=== PATIENT | female | born 1950 | race Caucasian/White ===

== ENCOUNTER 2022-03-28 06:24 | Day surgery (SDC) | payer MEDICARE, SELFPAY ==
[2022-03-22 14:18] VITALS: BMI 26.4
--- NOTE | 2022-03-23 09:01 | MHC.SHP ---
Pre-Procedural Eval Section A Date of Service: 03/23/22 The patient is an INPATIENT: No Changes since office visit: No Cold of Flu in the past 2 weeks, No New Medical Problems, No Changes in Medication and No Patient answered all questions The History & Physical has been completed within 30 days and I have reviewed it.: Yes Section B Chief Complaint: Age-related nuclear cataract, right eye Allergies: Allergies Allergy/AdvReac Type Severity Reaction Status Date / Time adhesive tape Allergy Unknown Verified 03/22/22 14:18 lactose Allergy Unknown Verified 03/22/22 14:18 sertraline Allergy Diarrhea Verified 03/22/22 14:18 [id number] Reductase Allergy Headache, Verified 03/22/22 14:18 Inhibitor Myalgia fluoxetine AdvReac Depression Verified 03/22/22 14:18 Plan Diagnosis/Plan: Unchanged I have reviewed the history and physical and performed a pertinent physical examination on my patient. No changes have occurred unless specified. Time Spent With Patient Time: Total time managing care of this patient today ____ minutes.
[2022-03-28 06:25] VITALS: BP 145/103; PULSE 93; RESP 18; TEMP 36.1; O2SAT 95
[2022-03-28] MEDS: Lactated Ringers 500 ML 20 ML IVCONT (06:40)
[2022-03-28] MEDS: Tetracaine HCl/PF 0.5% Oph Sol 4 ML DROPS 1 DROP EYE-RIGHT (06:42)
[2022-03-28] MEDS: Tropicamide 1 % Ophth Sol 3 ML BTL 1 DROP EYE-RIGHT ×3 (06:42→06:45)
[2022-03-28] MEDS: Ketorolac Tromethamine 0.5% Op 5 ML DROPS 1 DROP EYE-RIGHT ×3 (06:42→06:45)
[2022-03-28] MEDS: Cyclopentolate 1 % Ophth Sol 2 ML DRPBTL 1 DROP EYE-RIGHT ×3 (06:42→06:44)
[2022-03-28] MEDS: Phenylephrine HCL 2.5% Oph SoL 2 ML BOTTLE 1 DROP EYE-RIGHT ×3 (06:43→06:44)
--- NOTE | 2022-03-28 07:26 | HO.ANESPROP2 ---
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 Pulmonary nodules Smoker Tubular adenoma of colon Family History Family history of problems with anesthesia: No Surgical History Surgical History History of appendectomy History of arthroscopy of right knee History of lumpectomy of left breast History of removal of ovarian cyst Hx of colonoscopy History of Problems with Anesthesia: No Social History Social History Are you a primary plant health care technician to a significant other at home: No Do you presently have visiting nurse or other home services: No Patient Tobacco Use Status: Current everyday Tobacco user Tobacco use type: Cigarette Cigarettes Per Day: 8 Years Smoked: 50 Smoked in Last 30 Days: Yes Patient Interested in Nicotine Replacement: No Patient Given Instructions on How to Stop Smoking: No Second Hand Smoke Exposure: No Use of substances other than those prescribed or required for medical reasons: No Have you been hit, kicked, punched, or otherwise hurt by someone within the past year? If so, by whom?: No Are you DNR?: No Advance Directives: No Advance Directives Information Provided: Yes Advance Directives on File: No Recently lost weight without trying: No Eating poorly because of decreased appetite: No Nutrition Risks: No Nutritional Risk Patient : No : No Poor oral hygiene: No (Full Dentures) Meds Allergies Allergy/AdvReac Type Severity Reaction Status Date / Time adhesive tape Allergy Unknown Verified 03/22/22 14:18 lactose Allergy Unknown Verified 03/22/22 14:18 sertraline Allergy Diarrhea Verified 03/22/22 14:18 [id number] Reductase Allergy Headache, Verified 03/22/22 14:18 Inhibitor Myalgia fluoxetine AdvReac Depression Verified 03/22/22 14:18 Active Medications: Current Medications Moxifloxacin HCl (Moxifloxacin Hcl 0.5 % Oph Domi 3 Ml Drpbtl) 1 drop EYE-RIGHT POSTOP ONE Stop: 03/28/22 06:01 Phenylephrine HCl (Phenylephrine Hcl 2.5% Oph Domi 2 Ml Bottle) 1 drop EYE-RIGHT Q5M NIMCO Stop: 03/28/22 06:11 Last Admin: 03/28/22 06:44 Dose: 1 1000units Povidone Iodine (Povidone Iodine 5 % Ophth Soln 30 Ml Bottle) 1 appl EYE-RIGHT PREOP PRN PRN Reason: Pre-Op Surgical Implant Prophy Tetracaine HCl (Tetracaine Hcl/Pf 0.5% Oph Domi 4 Ml Drops) 1 drop EYE-RIGHT PREOP ONE Stop: 03/28/22 06:01 Last Admin: 03/28/22 06:42 Dose: 1 drop Triamcinolone Acetonide (Triamcinolone Acetonide 40 Mg/Ml Vial) 40 mg IM POSTOP ONE Stop: 03/28/22 06:01 Tropicamide (Tropicamide 1 % Ophth Domi 3 Ml Btl) 1 drop EYE-RIGHT Q5M NIMCO Stop: 03/28/22 06:11 Last Admin: 03/28/22 06:45 Dose: 1 drop Home Medications Medication Instructions Recorded Confirmed Last Taken Type anastrozole 1 mg tablet 1 tab PO DAILY 03/16/22 03/16/22 Unknown History apixaban 5 mg tablet (Eliquis) 1 tab PO BID 03/16/22 03/16/22 03/27/22 History buspirone 5 mg tablet 1 tab PO BID 03/16/22 03/16/22 03/28/22 History ezetimibe 10 mg tablet 1 tab PO DAILY 03/16/22 03/16/22 Unknown History fenofibrate nanocrystallized 48 mg 1 tab PO DAILY 03/16/22 03/16/22 Unknown History tablet fexofenadine 180 mg tablet 180 mg PO DAILY 03/16/22 03/16/22 Unknown History lorazepam 0.5 mg tablet 1 tab PO TID 03/16/22 03/16/22 03/28/22 History metoprolol succinate 100 mg 1 tab PO DAILY 03/16/22 03/16/22 03/28/22 History tablet,extended release 24 hr venlafaxine 37.5 mg 1 cap PO DAILY 03/16/22 03/16/22 Unknown History capsule,extended release 24 hr Exam Exam Date and Time: March 28, 2022725 Height,Weight and Vital Signs: Height 5 ft 9 in Weight 81.2 kg Last Vital Signs Temp 97 F 03/28/22 06:25 Pulse 93 03/28/22 06:25 Resp 18 03/28/22 06:25 BP 145/103 H 03/28/22 06:25 Pulse Ox 95 03/28/22 06:25 O2 Del Method 03/28/22 06:25 Airway Mallampati Class: II TM Dist: >3cm Neck ROM: Full Denture: Upper and Lower Heart: Irregularly irregular Lungs: CTAB. Diminished Assessment and Plan Assessment Anesthesia Assessment: Anesthesia Plan Discussed and Chart Reviewed Final Anesthetic Review Family History of Problems with Anesthesia: No History of Problems with Anesthesia: No NPO: Yes ASA Class: III Final Preanesthetic Review: No Changes in Pt Med Stat, Meds/Allgs Chart Reviewed, Consent Obtained/Reviewed and Anes Risks/Benef Reviewed Patient Risk: Intermediate Procedure Risk: Low Assessment/Block/Sedation in SS: Assess/Block/Sedation-SS Anesthetic Plan Anesthetic Plan: MAC: Disposition: Standard PACU
--- NOTE | 2022-03-28 07:46 | PC.NURSE ---
verbalized understanding of d/c
--- NOTE | 2022-03-28 08:14 | HO.PNOPHT ---
Ophthalmology Procedure Procedure Date of Service: 03/28/22 Ophthalmology Viscoelastic: Healsyed Godinezt Dual Pack Pro Ophthalmology Lenses: TECNIS [id number] (22.5) Procedure Notes: PREOPERATIVE DIAGNOSIS: Decreased visual acuity right eye secondary to cataract POSTOPERATIVE DIAGNOSIS: Same PROCEDURE: Right cataract extraction with intraocular lens insertion SURGEON: Sylvester Yo M.D. ANESTHESIA: Topical/MAC ESTIMATED BLOOD LOSS: None COMPLICATIONS: None After obtaining informed consent, the patient was brought to the operating room suite and placed in the supine position. After adequate sedation per anesthesia, topical drops of Tetracaine were given to the right eye. The eye was then prepped and draped in the usual sterile fashion. The operating room microscope was then positioned over the operative eye and a lid speculum placed. A paracentesis was created. Viscoelastic was then instilled into the anterior chamber. A three plane incision was then created temporally, utilizing a 2.85 mm keratome. Capsulotomy forceps were then utilized to create a circular tear capsulotomy. Hydrodissection and hydrodelineation were carried out until adequate mobilization of the nucleus occurred. Phacoemulsification was then utilized to remove the dense central nucleus followed by removal of the cortical material utilizing the automated aspiration irrigation unit. Viscoelastic was instilled into the posterior capsular bag followed by placement of a posterior chamber intraocular lens without difficulty. The residual Viscoelastic was then removed utilizing the automated IA machine. The wound was checked and found to be watertight. The patient tolerated the procedure well and the lid speculum was removed. Intracameral injection of Vigamox 0.1 mL followed by a subtenon injection of Kenalog-40 0.2 mL were administered. The patient will be seen in the a.m.
[2022-03-28 08:37] VITALS: BP 146/91; PULSE 94; RESP 16; TEMP 36.1; O2SAT 94
== END 2022-03-28 08:52 | disposition home or self-care (01) ==
PROVIDERS: PCP Internal Medicine; Visit Provider Ophthalmology
PROC: (CPT 66985; principal; 2022-03-28 08:00)
DX: H25.11 Age-related nuclear cataract, right eye (principal); H52.4 Presbyopia; G47.33 Obstructive sleep apnea (adult) (pediatric); E78.00 Pure hypercholesterolemia, unspecified; I48.91 Unspecified atrial fibrillation; D05.82 Other specified type of carcinoma in situ of left breast; Z79.811 Long term (current) use of aromatase inhibitors; Z79.01 Long term (current) use of anticoagulants; Z99.89 Dependence on other enabling machines and devices; Z79.899 Other long term (current) drug therapy; Z88.8 Allergy status to other drugs, medicaments and biological substances; Z91.040 Latex allergy status; F17.210 Nicotine dependence, cigarettes, uncomplicated
CPT/HCPCS: 66984; J2250; J3010; J3301; V2632